=== PATIENT | male | born 1940 | race Caucasian/White ===

== ENCOUNTER 2017-06-27 09:42 | Emergency (ER) | payer MEDICARE ==
[~2017-06-27] VITALS: Ht 175.3 cm; Wt 90.7 kg
[~2017-06-27 09:42] MED LIST: ALLOPURINOL 30300 M2 PO; ASPIR 8181 MG PO; ATORVASTATIN CA40 MG PO; COREG25 MG PO; COREG6.25 MG PO; LEVOTHYROXIN0.112 M1 PO; LISINOPRIL5 MG PO; LUMIGAN2.5 M1 OP; OMEPRAZOLE40 MG PO; PERSERVISION; PROAIR HFA8.5 GM INH; SYMBICORT160 MCG/4. INH; TAZTIA XT120 M1 PO; UNICOMPLEX M TA1 TA1 PO; ZESTORETIC 20-1 EAC3 PO
[2017-06-27 10:17] VITALS: BP 138/77
== END 2017-06-27 10:18 | disposition home or self-care (01) ==
LOC: M.ERS 09:42
DX: S50.812A Abrasion of left forearm, initial encounter (principal); I10 Essential (primary) hypertension; E78.5 Hyperlipidemia, unspecified; J44.9 Chronic obstructive pulmonary disease, unspecified; Z90.89 Acquired absence of other organs; W00.0XXA Fall on same level due to ice and snow, initial encounter; Y93.89 Activity, other specified; Y92.89 Other specified places as the place of occurrence of the external cause; Y99.8 Other external cause status